=== PATIENT | male | born 1955 | race Hispanic/Latino ===

== ENCOUNTER 2024-01-26 19:22 | Emergency (ER) | payer OTHER ==
[2024-01-26] MEDS ORDERED: ACETAMINOPHEN 325 MG TABLET ONE (20:31)
[2024-01-26] MEDS ORDERED: ONDANSETRON 4 MG/2 ML VIAL ONE (20:31)
[2024-01-26] MEDS ORDERED: NA CHLORIDE 0.9% 1,000 ML ONE ×2 (20:32→21:12)
[2024-01-26 20:47] LABS: Absolute Lymphocytes (CBC) 0.8 K/uL (0.7-4.9); Absolute Monocytes 0.4 K/uL (0.1-1.3); Absolute Neutrophil 9.9 K/uL (1.8-8.0); Basophils % 0.4 % (0-1.3); Hemoglobin 13.6 g/dL (13.6-17.9); Lymphocytes % 7.3 % (15.3-44.8); MCH 28.7 pg (27.0-35.0); MCHC 33.2 g/dL (32.0-36.0); MCV 86.3 fL (80-100); MPV 8.7 fL (7.6-11.3); Monocytes % 3.5 % (3.3-12.3); Neutrophils % 88.8 % (41.7-73.7); Platelets 304 thou/uL (152-406); RBC Red Blood Cell Count 4.76 M/uL (4.33-5.43); Red Cell Distribution Width 12.7 % (12.1-15.2)
[2024-01-26 20:50] LABS: PT Prothrombin Time 12.8 SECONDS (9.4-12.5); PTT, Activated Partial Thromb 27.7 SECONDS (24.3-36.9); Protime INR 1.17
[2024-01-26 20:57] LABS: Albumin 3.4 g/dL (3.4-5.0); Albumin/Globulin Ratio 0.9 (1.1-1.8); Anion Gap 11.4 mEq/L (5.0-15.0); Bilirubin Total 0.9 mg/dL (0.2-1.0); Globulin 3.9 g/dL (2.3-3.5); Potassium 3.4 mEq/L (3.5-5.1); Protein, Total 7.3 g/dL (6.4-8.2)
[2024-01-26 21:42] LABS: Band Neutrophils 48 % (0-1); Differential Total Cells Count 100; Lymphocytes 8 % (15-42); Metamyelocytes 3 % (0-0); Monocytes 1 % (0-10); Segmented Neutrophils 39 % (40-80)
[2024-01-26 21:43] LABS: Blood Morphology Comment NOT SEEN (NOT SEEN); Platelet Estimate ADEQ
--- NOTE | 2024-01-26 22:20 | RAD REPORT ---
EXAM DESCRIPTION: CT - Abdomen Pelvis W Contrast - 01/26/2024 10:03 pm CLINICAL HISTORY: Abdominal pain COMPARISON: none. TECHNIQUE: Computed axial tomography of the abdomen pelvis was obtained. 100 cc Isovue-300 was admin istered intravenously. Oral contrast was not requested which limits evaluation of bowel and appendix All CT scans are performed using dose optimization technique as appropriate and may include automated exposure control or mA/KV adjustment according to patient size. FINDINGS: Mild fatty liver Spleen, pancreas, adrenal and left kidney appear unremarkable. Small right renal cyst There is no evidence of diverticulitis. Normal appendix. Fluid within nondilated large and small bowel Mild to moderate atherosclerosis. Small to moderate left inguinal hernia contains fat Mild posterior subluxation of L5 on S1 IMPRESSION: Fluid within nondilated large and small bowel may indicate an enteritis
[2024-01-26 23:45] LABS: Renal Epithelial <5 /HPF (None Seen); Specific Gravity 1.026 (1.005-1.030); Sqamous Epithelial None Seen /HPF (None Seen); Urine Bacteria None Seen /HPF (<20); Urine Bilirubin NEGATIVE (Negative); Urine Blood Negative (Negative); Urine Clarity Clear (Clear); Urine Color Light-Yellow (Yellow); Urine Culture Reflex Order NOT NEEDED; Urine Glucose 3+ (Negative); Urine Ketones NEGATIVE (Negative); Urine Microscopic Reflex YN ORDER UMIC; Urine Nitrite NEGATIVE (Negative); Urine Protein TRACE (Negative); Urine RBC <5 /HPF (None Seen); Urine Urobilinogen Normal (Normal); Urine WBC <5 /HPF (<5); Urine pH 5.5 (5.0-7.0)
[2024-01-26] MEDS ORDERED: DICYCLOMINE HCL 10 MG CAP ONE (23:47)
--- NOTE | 2024-01-26 23:52 | ER ---
Nurse's Notes [facility] Name: Jeff Schmidt Age: 68 yrs Sex: Male : 1955 Arrival Date: 01/26/2024 Time: 19:22 Bed 2 Private MD: Diagnosis: Noninfective gastroenteritis and colitis, unspecified Presentation: 01/25 19:35 Chief complaint: Patient states: n/v/ fever for three days. Coronavirus screen: Client bm8 denies travel out of the [place] in the last 14 days. Ebola Screen: Patient negative for fever greater than or equal to 101.5 degrees Fahrenheit, and additional compatible Ebola Virus Disease symptoms Patient denies exposure to infectious person. Patient denies travel to an Ebola-affected area in the 21 days before illness onset. No symptoms or risks identified at this time. Initial Sepsis Screen: Does the patient meet any 2 criteria? No. Patient's initial sepsis screen is negative. Does the patient have a suspected source of infection? No. Patient's initial sepsis screen is negative. Risk Assessment: Do you want to hurt yourself or someone else? Patient reports no desire to harm self or others. Onset of symptoms was January 23, 2024. 19:35 Method Of Arrival: Wheelchair bm8 19:35 Acuity: ИРИНА 3 bm8 Triage Assessment: 19:39 General: Appears in no apparent distress. uncomfortable, Behavior is calm, cooperative, bm8 appropriate for age. Pain: Complains of pain in abdomen Pain does not radiate. Pain currently is 10 out of 10 on a pain scale. EENT: No deficits noted. No signs and/or symptoms were reported regarding the EENT system. Neuro: No deficits noted. Level of Consciousness is awake, alert, obeys commands, Oriented to person, place, time, situation. Cardiovascular: Capillary refill < 3 seconds Patient's skin is warm and dry. Respiratory: Airway is patent Trachea midline Respiratory effort is even, unlabored, Respiratory pattern is regular, symmetrical. GI: Abdomen is flat, non-distended, Bowel sounds present X 4 quads. Abd is soft and non tender X 4 quads. Reports lower abdominal pain, upper abdominal pain, diarrhea, nausea, vomiting. Historical: - Allergies: 19:37 No Known Allergies; bm8 - Home Meds: 19:37 losartan oral [Active]; Metformin Oral [Active]; bm8 - PMHx: 19:37 Hypertensive disorder; bm8 - PSHx: 19:38 None; bm8 - Immunization history:: Adult Immunizations up to date. - Infectious Disease History:: Denies. - Social history:: Smoking status: Patient denies any tobacco usage or history of. - Family history:: not pertinent. - Hospitalizations: : No recent hospitalization is reported. Screenin:40 Abuse screen: Denies threats or abuse. Denies injuries from another. Nutritional ha1 screening: No deficits noted. Tuberculosis screening: No symptoms or risk factors identified. 01/26 00:08 [facility] ED Fall Risk Assessment (Adult) History of falling in the last 3 months, tm6 including since admission No falls in past 3 months (0 pts) Confusion or Disorientation No (0 pts) Intoxicated or Sedated No (0 pts) Impaired Gait No (0 pts) Mobility Assist Device Used No (0 pt) Altered Elimination No (0 pt) Score/Fall Risk Level 0 - 2 = Low Risk Oriented to surroundings, Maintained a safe environment, Educated pt \T\ family on fall prevention, incl call for assistance when getting out of bed. Assessment: 01/25 20:00 General: Appears comfortable, Behavior is calm, cooperative. Pain: Complains of pain in ha1 abdomen Pain does not radiate. Pain currently is 3 out of 10 on a pain scale. Quality of pain is described as crampy. Neuro: Neuro: Level of Consciousness is awake, alert, obeys commands, Oriented to person, place, time, situation. Cardiovascular: Capillary refill < 3 seconds Patient's skin is warm and dry. Respiratory: Airway is patent Respiratory effort is even, unlabored, Respiratory pattern is regular, symmetrical. GI: Abdomen is round non-distended, Reports diarrhea, nausea, vomiting. : No signs and/or symptoms were reported regarding the genitourinary system. Derm: Skin is normal. Musculoskeletal: Circulation, motion, and sensation intact. Range of motion: intact in all extremities. 20:54 Reassessment: Patient appears in no apparent distress at this time. Patient and/or tm6 family updated on plan of care and expected duration. Pain level reassessed. Patient is alert, oriented x 3, equal unlabored respirations, skin warm/dry/pink. 22:16 Reassessment: Patient appears in no apparent distress at this time. Patient and/or tm6 family updated on plan of care and expected duration. Pain level reassessed. Patient is alert, oriented x 3, equal unlabored respirations, skin warm/dry/pink. 23:32 Reassessment: Patient appears in no apparent distress at this time. Patient and/or tm6 family updated on plan of care and expected duration. Pain level reassessed. Patient is alert, oriented x 3, equal unlabored respirations, skin warm/dry/pink. 01/26 00:07 Reassessment: Patient appears in no apparent distress at this time. tm6 Vital Signs: 01/25 19:35 BP 94 / 51; Pulse 103; Resp 17; Temp 99.2(O); Pulse Ox 95% ; Weight 58.97 kg; Height 5 bm8 ft. 6 in. ; Pain 10/10; 20:53 BP 110 / 65; Pulse 94; Pulse Ox 96% on R/A; Pain 4/10; tm6 20:58 BP 110 / 65; Pulse 92; ec2 20:58 Pulse Ox 97% ; ec2 22:16 BP 123 / 59; Pulse 79; Pulse Ox 97% on R/A; tm6 23:32 BP 125 / 61; Pulse 77; Pulse Ox 98% on R/A; Pain 4/10; tm6 01/26 00:07 BP 119 / 58; Pulse 83; Resp 19; Temp 97.8(TE); Pulse Ox 97% on R/A; Pain 5/10; tm6 01/25 19:35 Body Mass Index 20.98 (58.97 kg, 167.64 cm) bm8 01/25 19:35 Pain Scale: Adult bm8 20:53 Pain Scale: Adult tm6 23:32 Pain Scale: Adult tm6 01/26 00:07 Pain Scale: Adult tm6 ED Course: 01/25 19:28 Patient arrived in ED. ra3 19:37 Triage completed. bm8 19:38 Arm band placed on right wrist. bm8 19:38 Patient has correct armband on for positive identification. Bed in low position. Call tm6 light in reach. Side rails up X 1. Client placed on continuous cardiac and pulse oximetry monitoring. NIBP monitoring applied. shelter monitor on. Pulse ox on. NIBP on. Door closed. Noise minimized. Warm blanket given. Pillow given. 19:42 Sriram Arias MD is Attending Physician. rn 20:21 Attending Physician role handed off by Sriram Arias MD ec2 20:21 Michele Domínguez MD is Attending Physician. ec2 20:22 Initial lab(s) drawn, by me, sent to lab. First set of blood cultures drawn by me, EKG rv1 done, by ED staff, reviewed by Michele Domínguez MD. 20:27 Inserted saline lock: 20 gauge in right forearm, using aseptic technique. Blood rv1 collected. 20:28 CMP Sent. rv1 20:28 CBC with Diff Sent. rv1 20:28 Lactate w/ 2H reflex if indic. Sent. rv1 20:28 Protime (+inr) Sent. rv1 20:28 Ptt, Activated Sent. rv1 21:11 Melida Villalba, RN is Primary Nurse. tm6 22:05 CT Abd/Pelvis - IV Contrast Only In Process Unspecified. EDMS 23:05 Urinalysis w/ reflexes Sent. tm6 01/26 00:08 Provided Education on: use of prescriptions. tm6 00:08 No provider procedures requiring assistance completed. IV discontinued, intact, tm6 bleeding controlled, No redness/swelling at site. Pressure dressing applied. Administered Medications: 01/25 20:47 Drug: NS 0.9% IV 1000 ml IV at 1000 ml once Route: IV; Rate: 1000 ml; Site: right wrist;tm6 20:47 Drug: Acetaminophen PO 650 mg PO once Route: PO; tm6 20:47 Drug: Ondansetron IVP 4 mg IVP once; over 2 minutes Route: IVP; Site: right wrist; tm6 21:16 Drug: NS 0.9% IV 1000 ml IV at 1 bolus Per protocol; 1000 mL bolus Route: IV; Rate: 1 tm6 bolus; Site: right wrist; 23:04 Follow up: IV Status: Completed infusion; IV Intake: 1000ml tm6 23:49 Drug: Dicyclomine PO 20 mg PO once Route: PO; tm6 Medication: 01/26 00:09 VIS not applicable for this client. tm6 Intake: 01/25 23:04 IV: 1000ml; Total: 1000ml. tm6 Outcome: 23:52 Discharge ordered by . ec2 01/26 00:07 Discharged to home ambulatory, with family, tm6 Condition: stable Discharge instructions given to patient, family, Instructed on discharge instructions, follow up and referral plans. medication usage, Demonstrated understanding of instructions, follow-up care, medications, Prescriptions given X 2, 00:09 Patient left the ED. tm6 Signatures: Dispatcher [employer] EDMS Sriram Arias MD MD rn Ayala, Heidy RN RN ha1 Sylvia Guan rv1 Michele Domínguez MD MD ec2 Melida Villalba RN RN tm6 Latrice Larkin ra3 Harrison Boyle, RN RN bm8
--- NOTE | 2024-01-26 23:52 | EDPHYS ---
Physician Documentation [facility] Name: Jeff Schmidt Age: 68 yrs Sex: Male : 1955 Arrival Date: 01/26/2024 Time: 19:22 Bed 2 Private MD: ED Physician Michele Domínguez HPI: 01/25 19:46 This 68 yrs old Male presents to ER via Wheelchair with complaints of Nausea/Vomiting, rn Fever, Dizziness. 19:46 The patient presents to the emergency department with nausea, vomiting, diarrhea, rn abdominal pain. Onset: The symptoms/episode began/occurred 3 day(s) ago. Possible causes: unknown. The symptoms are aggravated by nothing. The symptoms are alleviated by nothing. Severity of symptoms: At their worst the symptoms were moderate in the emergency department the symptoms are unchanged. The patient has not experienced similar symptoms in the past. Patient reports 3 days of nausea/vomiting/diarrhea. Subjective fever. No sick contacts. Did have recent travel. No abdominal surgeries. No blood in stool or emesis. Reports equal parts vomiting and diarrhea.. Historical: - Allergies: 19:37 No Known Allergies; bm8 - Home Meds: 19:37 losartan oral [Active]; Metformin Oral [Active]; bm8 - PMHx: 19:37 Hypertensive disorder; bm8 - PSHx: 19:38 None; bm8 - Immunization history:: Adult Immunizations up to date. - Infectious Disease History:: Denies. - Social history:: Smoking status: Patient denies any tobacco usage or history of. - Family history:: not pertinent. - Hospitalizations: : No recent hospitalization is reported. ROS: 19:46 Constitutional: Positive for fever and chills Cardiovascular: Negative for chest pain, rn palpitations, and edema, Respiratory: Negative for shortness of breath, cough, wheezing, and pleuritic chest pain, Abdomen/GI: Positive for abdominal pain with nausea/vomiting/diarrhea MS/Extremity: Negative for injury and deformity, Skin: Negative for injury, rash, and discoloration, Neuro: Positive for generalized weakness Exam: 20:54 Constitutional: No acute distress ec2 Vital Signs: 19:35 BP 94 / 51; Pulse 103; Resp 17; Temp 99.2(O); Pulse Ox 95% ; Weight 58.97 kg; Height 5 bm8 ft. 6 in. ; Pain 10/10; 20:53 BP 110 / 65; Pulse 94; Pulse Ox 96% on R/A; Pain 4/10; tm6 20:58 BP 110 / 65; Pulse 92; ec2 20:58 Pulse Ox 97% ; ec2 22:16 BP 123 / 59; Pulse 79; Pulse Ox 97% on R/A; tm6 23:32 BP 125 / 61; Pulse 77; Pulse Ox 98% on R/A; Pain 4/10; tm6 01/26 00:07 BP 119 / 58; Pulse 83; Resp 19; Temp 97.8(TE); Pulse Ox 97% on R/A; Pain 5/10; tm6 01/25 19:35 Body Mass Index 20.98 (58.97 kg, 167.64 cm) bm8 01/25 19:35 Pain Scale: Adult bm8 20:53 Pain Scale: Adult tm6 23:32 Pain Scale: Adult tm6 01/26 00:07 Pain Scale: Adult tm6 MDM: 01/25 19:42 Patient medically screened. rn 20:33 Data reviewed: vital signs. ED course: patient signed out to me by previous physician, ec2 in brief patient arrives today for evaluation of nausea and vomiting along with fevers and lightheadedness. Patient with slight hypotension, slight tachycardia, septic workup ordered by previous physician, plan is to follow-up lab work, CT imaging and reassess.. 20:54 ED course: CBC shows slight leukocytosis. Coagulation profile is nonactionable . ec2 21:01 ED course: Metabolic profile shows slight hyponatremia with a sodium of 127, ec2 hypokalemia with potassium of 3.4, appropriate renal function. Patient with a slight lactate elevation, will give the patient an additional liter of crystalloid . 22:22 ED course: CT abdomen pelvis shows enteritis. Pending completion of liter bolus, repeat ec2 lactic. 23:45 ED course: On reassessment patient tolerating p.o. without issue. Patient with ec2 improving hemodynamics.. 01/25 19:41 Order name: CBC with Diff; Complete Time: 22:07 rn 01/25 19:41 Order name: CMP; Complete Time: 21:00 rn 01/25 19:41 Order name: Lactate w/ 2H reflex if indic.; Complete Time: 21:02 rn 01/25 19:41 Order name: Protime (+inr); Complete Time: 20:53 rn 01/25 19:41 Order name: Ptt, Activated; Complete Time: 20:53 rn 01/25 19:41 Order name: Urinalysis w/ reflexes; Complete Time: 23:46 rn 01/25 21:20 Order name: Manual Differential; Complete Time: 22:07 EDMS 01/25 23:01 Order name: Ghost Lactate-NO COLLECT Timer; Complete Time: 23:04 EDCA 01/25 23:48 Order name: Lactate Sepsis 2 HR Follow-up; Complete Time: 23:49 EDMS 01/25 19:41 Order name: CT Abd/Pelvis - IV Contrast Only; Complete Time: 22:22 rn 01/25 19:41 Order name: EKG; Complete Time: 19:42 rn 01/25 19:41 Order name: Accucheck; Complete Time: 20:37 rn 01/25 19:41 Order name: Cardiac monitoring; Complete Time: 20:28 rn 01/25 19:41 Order name: EKG - Nurse/Tech; Complete Time: 20:13 rn 01/25 19:41 Order name: IV Saline Lock - Large Bore; Complete Time: 20:28 rn 01/25 19:41 Order name: Labs collected and sent; Complete Time: 20:28 rn 01/25 19:41 Order name: O2 Per Protocol; Complete Time: 20:28 rn 01/25 19:41 Order name: O2 Sat Monitoring; Complete Time: 20:28 rn 01/25 19:41 Order name: Vital Signs; Complete Time: 20:28 rn 01/25 21:03 Order name: Maricarmenc. Order: repeat lactic acid after 2L of IVF complete; Complete Time: ec2 23:04 01/25 23:05 Order name: Misc. Order: repeat lactic please; Complete Time: 23:05 ec2 Administered Medications: 20:47 Drug: NS 0.9% IV 1000 ml IV at 1000 ml once Route: IV; Rate: 1000 ml; Site: right wrist;tm6 20:47 Drug: Acetaminophen PO 650 mg PO once Route: PO; tm6 20:47 Drug: Ondansetron IVP 4 mg IVP once; over 2 minutes Route: IVP; Site: right wrist; tm6 21:16 Drug: NS 0.9% IV 1000 ml IV at 1 bolus Per protocol; 1000 mL bolus Route: IV; Rate: 1 tm6 bolus; Site: right wrist; 23:04 Follow up: IV Status: Completed infusion; IV Intake: 1000ml tm6 23:49 Drug: Dicyclomine PO 20 mg PO once Route: PO; tm6 Disposition Summary: 01/26/24 23:52 Discharge Ordered Notes: Location: Home ec2 Condition: Stable ec2 Diagnosis - Noninfective gastroenteritis and colitis, unspecified ec2 Followup: ec2 - With: Private Physician - When: - Reason: Re-evaluation by your physician Discharge Instructions: - Discharge Summary Sheet ec2 - Viral Gastroenteritis, Adult, [id number] ec2 Forms: - Family Work Release ec2 - Medication Reconciliation Form ec2 - Antibiotic Education ec2 - Prescription Opioid Use ec2 - Patient Portal Instructions ec2 - Leadership Thank You Letter ec2 Prescriptions: - Zofran 4 mg Oral Tablet - take 1 tablet ORAL route every 12 hours As needed; 20 tablet; Refills: 0, ec2 Product Selection Permitted - dicyclomine 10 mg Oral capsule - take 2 capsules ORAL route 3 times per day; 30 capsule; Refills: 0, Product ec2 Selection Permitted Signatures: Dispatcher [employer] EDMS Sriram Arias MD MD rn Corral, Edwin, MD MD 2 Melida Villalba RN RN 6 Harrison Boyle RN RN bm8 Corrections: (The following items were deleted from the chart) 19:42 19:42 BLOOD CULTURE*+BA.LAB.BRZ ordered. EDMS EDMS 19:42 19:42 CBC+H.LAB.BRZ ordered. EDMS EDMS 19:42 19:42 COMPREHENSIVE METABOLIC PANEL+C.LAB.BRZ ordered. EDMS EDMS 19:42 19:42 LACTATE+C.LAB.BRZ ordered. EDMS EDMS 19:42 19:42 PROTIME (+INR)+COAG.LAB.BRZ ordered. EDMS EDMS 19:42 19:42 PTT, ACTIVATED+COAG.LAB.BRZ ordered. EDMS EDMS 19:42 19:42 Urinalysis+U.LAB.BRZ ordered. EDMS EDMS
[2024-01-27 06:46] VITALS: BP 119/58; O2SAT 97
[2024-01-27 06:47] VITALS: TEMP 97.8
--- NOTE | 2024-01-27 12:43 | EKG ---
Test Date: 2024-01-26 Test Time: 20:05:18 Worship Director: [facility] MEASUREMENT RESULTS: Intervals: Rate: 100 IA: 128 QRSD: 94 QT: 316 QTc: 407 [place]: P: 46 IA: 128 QRS: -38 T: 64 INTERPRETIVE STATEMENTS: Normal sinus rhythm Left axis deviation Abnormal ECG No previous ECG available for comparison Electronically Signed On 01-27-24 12:41:33 CDT by James Hathaway
== END 2024-01-27 00:09 | disposition home or self-care (01) ==
LOC: ER 19:22
DX: K52.9 Noninfective gastroenteritis and colitis, unspecified (principal); I10 Essential (primary) hypertension
CPT/HCPCS: 96361; 93005; 85025; 81001; 36415; 85610; 83605 ×2; 85730; 80053; 74177; 96374; 99285; Q9967; J2405; J7030 ×2; 87040